=== PATIENT | male | born 1980 | race Caucasian/White ===

== ENCOUNTER 2016-07-18 09:44 | Emergency (ER) | payer SELFPAY ==
[~2016-07-18] VITALS: Ht 190.5 cm; Wt 140.8 kg
[2016-07-18] MEDS ORDERED: KETOROLAC 30 MG/ML (TORADOL) 1 ML VIAL IV ONE (10:00)
[2016-07-18 10:19] LABS: BASOPHILS % (AUTO) 0 % (0-2); EOSINOPHILS # (AUTO) 0.1 10^3uL; EOSINOPHILS % (AUTO) 2 % (0-4); LYMPHOCYTES # (AUTO) 2.2 X10^3; MEAN CORPUSCULAR HEMOGLOBIN 29.9 PG (26.0-34.0); MEAN CORPUSCULAR HGB CONC 35.7 g/dL (31.0-37.0); MEAN CORPUSCULAR VOLUME 84 FL (80-100); MEAN PLATELET VOLUME 9.7 FL (6.0-9.5); MONOCYTES # (AUTO) 0.5 X10^3; MONOCYTES % (AUTO) 6 % (3-11); NEUTROPHILS % (AUTO) 63 % (51-67); PLATELET COUNT 246 10^3uL (150-450); WHITE BLOOD COUNT 7.86 10^3uL (4.0-11.0)
[2016-07-18 10:25] LABS: ALBUMIN 4.2 g/dL (3.4-5.0); ANION GAP 13.3 MEQ/L (3-15); CALCULATED IONIZED CALCIUM 4.1 mg/dL (3.8-4.6)
[2016-07-18 11:48] VITALS: BP 143/91
== END 2016-07-18 11:32 | disposition home or self-care (01) ==
LOC: EDUNIT# 09:44 → ED 09:46
DX: R11.2 Nausea with vomiting, unspecified (principal); R19.7 Diarrhea, unspecified
CPT/HCPCS: 36415; 80053; 85025; 96361; 96374; 99284; J1885; J7030; 99282